=== PATIENT | female | born 1990 | race Caucasian/White ===

== ENCOUNTER 2017-12-12 15:25 | Outpatient (CLI) | payer OTHER ==
--- NOTE | 2017-12-13 08:33 | Diagnostic Imaging Report ---
ADALBERTO NEAL [facility] [id number] [facility] [address] [id number] Report Submission Date: Dec 12, 2017 4:09:56 PM CDT Patient Study Name: GABRIEL FREGOSO Date: Dec 12, 2017 3:45:17 PM CDT Modality Type: DX Gender: F Description: SPINE : 89 Institution: [facility] Physician: ADALBERTO NEAL Examination: Plain film spine. History: SCOLIOSIS SERIES, ACUTE BILATERAL THORACIC BACK PAIN, WORSENING IN THE LAST WEEK. PT STATES SHE HAS HAD BACK PAIN FOR SEVERAL YEARS (Hx) Comparison exams: None available. Findings: Utilizing Jain technique measuring from the superior endplate of T8 to the inferior endplate of L2, a measurement of 3 of rightward convexity is identified. No other abnormal curvature identified. No vertebral body abnormalities. Impression: 3 of dextroconvex curvature to the thoracolumbar spine. Electronically signed on Dec 12, 2017 4:09:56 PM CDT by: Jose Cruz GOULD
== END 2017-12-12 15:26 ==
LOC: RAD 15:25
PROVIDERS: ATTEND Physician Assistant
DX: M54.6 Pain in thoracic spine (principal)
CPT/HCPCS: 72083